=== PATIENT | female | born 1980 | race Caucasian/White ===

== ENCOUNTER 2023-08-21 18:52 | Emergency (ER) | payer SELFPAY ==
[2023-08-21 18:59] VITALS: BP 131/87
--- NOTE | 2023-08-21 22:42 | ED.GENMED ---
History of Present Illness
General
Chief Complaint: Musculo-Skeletal Complaint
Source: patient
Exam Limitations: none
Time Seen by Provider: 08/21/23 21:48
Nursing documentation reviewed up to this point in time: agreed with
History of Present Illness
History of Present Illness:
Patient is a 42-year-old female with chronic back pain chronic spinal stenosis fibromyalgia [facility] presents to [facility] for evaluation of low back pain. Patient was white water rafting on Thursday 5 days ago and since that has been very
sore now complains of worsening low back pain rating down to both of her legs and feels weakness in legs. She denies any loss of bowel or bladder.
She takes Excedrin and gabapentin.
She
Review of Systems
Review of Systems
Allergies reviewed?: Yes
All Other Systems: ROS reviewed and negative except as documented in HPI and ROS
Constitutional: Reports no symptoms
Respiratory: Reports no symptoms
Cardiac: Reports no symptoms
ABD/GI: Reports no symptoms
: Denies incontinence or difficulty voiding
Musculoskeletal: Reports back pain and other (legs feel sore 'feel heavy ' )
Skin: Reports no symptoms
Phy Exam
General Physical Exam
General Presentation: no apparent distress
General age: appears stated age
General Skin: warm and dry
General Habitus: normal
General Mental: alert
General Hydration: appears well hydrated
Neurological Exam
Neurological Exam: alert, oriented x3, no motor deficits, normal reflexs, no sensory deficits and other (Able to lift legs off the stretcher bilaterally able to bear weight and stand and walk)
Musculoskeletal Exam
Musculoskeletal Exam: full ROM and other (Normal inspection to back, no ecchymosis or abrasions tender throughout the paralumbar muscles no bony tenderness over coccyx)
Course
Orders/Labs/Results
Orders:
Orders
08/21/23 22:41
Ketorolac [Toradol] 30 mg IM NOW STA
diazePAM [Valium Injection] 5 mg IM NOW STA
08/21/23 23:00
Coccyx/Sacrum, 2 View CR [CR Sacrum/coccyx Min 2 View] Urgent
Comment:
Reason For Exam: trauma
Lumbar Spine Complete, 4 View [CR Lumbar Spine Comp Min 4 Vw*] Urgent
Comment:
Reason For Exam: trauma
Vital Signs
Initial and Last Documented VS:
Initial Vital Signs
Temp Pulse Resp BP Pulse Ox
98 F 89 18 131/87 98
08/21/23 18:59 08/21/23 18:59 08/21/23 18:59 08/21/23 18:59 08/21/23 18:59
Last Documented Vital Signs
Temp Pulse Resp BP Pulse Ox
98 F 89 18 131/87 98
08/21/23 18:59 08/21/23 18:59 08/21/23 18:59 08/21/23 18:59 08/21/23 18:59
Manager Of Case Management consulted with Physician
Manager Of Case Management consulted with physician?: Yes
Name of Physician Consulted: noh
MDM/Problems Addressed
MDM/Problems Addressed:
Patient is a 42-year-old female with history of spinal stenosis, chronic back pain fibromyalgia presents to the ER for evaluation of worsening low back pain. She was white water rafting 5 days ago and denies any injury but was very sore the
following day and since then has gotten progressively more sore. She complains of pain throughout the back/legs. She feels that her legs are heavy but denies any loss of bowel or bladder. On exam she is awake alert no acute distress normal
patellar reflexes walking with a walking stick here in the ER feels pain with straightening up. Case reviewed with Dr. Li initial x-rays were ordered and recommended along with rectal exam however the patient wants to go home because she has an
11-year-old son by himself.
[facility]. I did review with patient the importance of following up with the [facility] for close outpatient follow-up in the next several days and she may need MRI if continued. She is also to return if any worsening of symptoms including
worsening leg weakness loss of bowel or bladder or any further concerns.
*Critical Care Note
Total Time (30-74mins, 75-104mins- exclusive of procedures): Not Applicable
ED Attending Note
-
Portions of this chart may have been created with voice recognition software.� Occasional wrong word or��sound alike� substitutions may have occurred due to the inherent limitations of voice recognition software.
Discharge Plan
Departure
Patient Disposition: Home (Routine Discharge)
Date of Disposition: 08/21/23
Time of Disposition: 23:25
Patient with high blood pressure during this ER visit?: Yes
Condition: Fair
Covid-19: Not Applicable
Discharge Problem:
Low back pain
Instructions: Low Back Pain (DC), Ibuprofen, BLOOD PRESSURE
Prescriptions:
New
diazepam [Valium] 5 mg tablet
5 mg PO TID PRN (Reason: muscle spasm) Qty: 10 0RF
Referrals:
UNKNOWN - PT DOES,NOT KNOW [Family Provider] -
Activity Restrictions/Additional Instructions:
Ibuprofen 600 mg every 8 hours with food. A prescription for Valium, muscle laxer was also sent to pharmacy take as directed. This will cause drowsiness no driving or drinking alcohol or taking medicine. Warm moist heat to back several times a
day. [facility].
Return however to the ER for any worsening of symptoms including any worsening weakness, pain, loss of bowel or bladder. You may need MRI to further evaluate symptoms.
Interventions
Interventions:
*Risk Screen - Suicide Last Done: 08/21/23 18:59
*General Assessment Last Done: 08/21/23 18:59
*Neglect/Abuse Screening Last Done: 08/21/23 18:59
ED- Fall Risk Assessment Last Done: 08/21/23 23:23
ED-Musculoskeletal Assessment Last Done: 08/21/23 22:45
Discharge Date and Time
Print Language: THAI
[2023-08-21] MEDS: VALIUM INJECTION 5 MG IM (22:50)
[2023-08-21] MEDS: TORADOL 30 MG IM (22:50)
== END 2023-08-21 23:34 | disposition home or self-care (01) ==
LOC: EMR 18:52
PROVIDERS: EMERGENCY PHYSICIAN Emergency Medicine
DX: M54.50 Low back pain, unspecified (principal); R53.1 Weakness; M79.605 Pain in left leg; M79.604 Pain in right leg; X58.XXXA Exposure to other specified factors, initial encounter; Y93.16 Activity, rowing, canoeing, kayaking, rafting and tubing; R03.0 Elevated blood-pressure reading, without diagnosis of hypertension; M48.00 Spinal stenosis, site unspecified; M79.7 Fibromyalgia; G43.909 Migraine, unspecified, not intractable, without status migrainosus; Z88.8 Allergy status to other drugs, medicaments and biological substances
CPT/HCPCS: 99284; 96372 ×2